=== PATIENT | female | born 1955 | race American Indian/Alaskan Native ===

== ENCOUNTER 2020-10-10 10:30 | Outpatient (CLI) | payer MEDICARE ==
--- NOTE | 2020-10-10 12:41 | Ultrasound Report ---
BILATERAL DIGITAL DIAGNOSTIC MAMMOGRAM WITH CAD , 10/10/2020 LEFT LIMITED BREAST ULTRASOUND CLINICAL INFORMATION / INDICATION: Patient's physician palpated a lump in the left breast on breast e xam 2 weeks ago. TECHNIQUE: Digital left mammographic imaging was performed. Spot compression views were obtained. Oscar ited ultrasound was performed. This examination was interpreted with the benefit of Computer-Aided De tection (CAD) analysis. COMPARISON: Priors not available. FINDINGS: Breast Density: There are scattered areas of fibroglandular density. MAMMOGRAPHIC FINDINGS: No dominant mass, suspicious calcifications, or architectural distortion in ei ther breast. Mild benign-appearing bilateral nodularity. There is no mammographic correlate for the c omplaint of palpable lump, left breast. Ultrasound will be performed for further evaluation. ULTRASOUND FINDINGS: Targeted ultrasound evaluation was performed of the area of interest. Sonograp hic evaluation of the left breast, upper outer quadrant, corresponding to area of previously palpated lump, is unremarkable. There is no mass, cyst, or suspicious area of shadowing identified. IMPRESSION: No mammographic or sonographic evidence of malignancy. No correlate for left breast lump. Clinical correlation is recommended. Follow up recommendation: Routine yearly BI-RADS Category 2: Benign. A "normal" or negative report should not discourage follow up or biopsy of a clinically significant f inding. A written summary of these findings will be mailed to the patient. The patient will be entered into a mammography reporting system which will generate a reminder letter for the patient's next appointmen t at the appropriate interval. According to the [employer], yearly mammograms are recommended starting at age 40 and continuing as long as a woman is in good health. Breast MRI is recommended for women with an jesús roximately 20-25% or greater lifetime risk of breast cancer, including women with a strong family his tory of breast or ovarian cancer and women who have been treated for Hodgkin's disease. Signer Name: Tasia Cuevas MD Signed: 10/10/2020 12:36 PM Workstation Name: [id number]
== END 2020-10-10 10:31 | disposition home or self-care (01) ==
LOC: MAMMO 10:30
PROVIDERS: ATTEND Internal Medicine
DX: R92.8 Other abnormal and inconclusive findings on diagnostic imaging of breast (principal); N63.20 Unspecified lump in the left breast, unspecified quadrant
CPT/HCPCS: 77066